=== PATIENT | female | born 1980 | race Two or more races ===

== ENCOUNTER 2024-04-19 10:09 | Emergency (ER) | payer OTHER ==
[~2024-04-19] VITALS: Ht 144.8 cm; Wt 44.5 kg
[2024-04-19] MEDS ORDERED: SYNTHROID50 MCG (10:29)
[2024-04-19] MEDS ORDERED: ACETAMINOPHEN 500 MG GEL..CAP PO ONE (10:45)
[2024-04-19] MEDS ORDERED: HYOSCYAMINE SULFATE 0.125 MG TAB.SUBL SL ONE (10:45)
[2024-04-19] MEDS ORDERED: METOCLOPRAMIDE HCL 5 MG/ML VIAL IM ONE (10:45)
[2024-04-19 12:11] LABS: HEMATOCRIT 40.6 % (36.0-45.00); HEMOGLOBIN 13.7 g/dL (12.0-15.00); MEAN CELL VOLUME 86.7 fL (80.00-100.00); MEAN CORPUSCULAR HEMOGLOBIN 29.3 pg (27.00-32.0); MEAN CORPUSCULAR HGB CONC 33.7 g/dl (32.0-36.0); PLATELET COUNT 176 K/uL (150-450); RED BLOOD COUNT 4.68 M/uL (4.00-6.00); RED CELL DISTRIBUTION WIDTH 13.5 % (11.5-14.5)
[2024-04-19 13:17] VITALS: BP 110/66; O2SAT 99
== END 2024-04-19 13:18 | disposition home or self-care (01) ==
LOC: ER 10:12
PROVIDERS: General Practice
DX: J10.1 Influenza due to other identified influenza virus with other respiratory manifestations (principal); Z20.822 Contact with and (suspected) exposure to COVID-19